=== PATIENT | male | born 1965 | race Caucasian/White ===

== ENCOUNTER → 2016-10-06 | Outpatient (CLI) | payer OTHER ==
--- NOTE | 2016-10-06 20:23 | REP ---
LEFT SHOULDER SERIES, COMPLETE: 10/06/2016. Comparison: 11/10/2008. Clinical history: Work injury to the shoulder. Findings: There are degenerative changes to the AC joint with inferior spurs there and also at the peripheral acromion. No widening of the joint space or elevation of the clavicle and no visible fracture around the AC joint. Humeral head, scapula and ribs without visible fracture or focal lesion. No subluxation or dislocation of the humeral head. No abnormal soft tissue calcifications. Impression: 1. 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 This might cause impingement. No fracture, subluxation or acute bony finding. Signed by Krishna Pat MD 10/07/2016 11:14 A
== END ==
LOC: M WUC 18:04
PROVIDERS: ATTEND Physician Assistant
DX: M25.512 Pain in left shoulder (principal); M19.012 Primary osteoarthritis, left shoulder

== ENCOUNTER 2018-04-13 06:40 | Day surgery (SDC) | payer OTHER ==
[~2018-04-13] VITALS: Ht 177.8 cm; Wt 180.9 kg
[~2018-04-13 06:40] MED LIST: ASPI81TA85 PO; FISH7.5C PO; IRBE300T10 PO; METO1TAB87 PO; NS 1,000 ML IV ONE; VITA10002 PO; VITA500T PO
[2018-04-13] MEDS ORDERED: PROPOFOL 200 MG/20 ML VIAL As Ordered ONE ×3 (07:52→08:21)
[2018-04-13] MEDS ORDERED: LIDOCAINE 2% INJ 100 MG/5 ML SDV (FOR ANES.) As Ordered ONE (07:52)
--- NOTE | 2018-04-13 08:40 | ROOR ---
Patient Name: Moo Lora Procedure Date: 04/13/2018 7:59 AM Date of : 1965 Age: 53 Room: [facility] Gender: Male Note Status: Finalized Procedure: Colonoscopy Indications: Screening for colorectal malignant neoplasm, Incidental - Hematochezia Providers: Benjamin LEBLANC MD Referring MD: VU IYER MD Requesting Provider: Medicines: Monitored Anesthesia Care Complications: No immediate complications. Procedure: Pre-Anesthesia Assessment: - The heart rate, respiratory rate, oxygen saturations, blood pressure, adequacy of pulmonary ventilation, and response to care were monitored throughout the procedure. The Colonoscope was introduced through the anus and advanced to the cecum, identified by appendiceal orifice and ileocecal valve. The colonoscopy was performed without difficulty. The patient tolerated the procedure well. The quality of the bowel preparation was good. Findings: The perianal and digital rectal examinations were normal. Small Internal Hemorrhoids. Mild sigmoid diverticulosis and small internal hemorrhoids. The entire examined colon appeared normal on direct and retroflexion views. Retroflexion in the right colon was performed. Impression: - Mild sigmoid diverticulosis and small internal hemorrhoids. - The entire colon is otherwise normal on direct and retroflexion views. - No specimens collected. Recommendation: - Repeat colonoscopy in 10 years for screening purposes. Benjamin Leblanc MD Benjamin LEBLANC MD 04/13/2018 8:39:41 AM This report has been signed electronically. Number of Addenda: 0 Note Initiated On: 04/13/2018 7:59 AM Estimated Blood Loss: Estimated blood loss: none.
[2018-04-13 08:58] VITALS: BP 124/71
== END 2018-04-13 09:10 | disposition home or self-care (01) ==
LOC: M OPP 06:40
PROVIDERS: ATTEND Internal Medicine Gastroenterology
DX: Z12.11 Encounter for screening for malignant neoplasm of colon (principal); K64.8 Other hemorrhoids; K57.30 Diverticulosis of large intestine without perforation or abscess without bleeding; I10 Essential (primary) hypertension; G47.30 Sleep apnea, unspecified; Z79.82 Long term (current) use of aspirin; Z79.899 Other long term (current) drug therapy

== ENCOUNTER → 2019-02-05 | Outpatient (REF) | payer OTHER ==
[~2019-02-05] MED LIST changes: +CYAN100049 PO; +D 101000 PO; +HYDR12CA PO; -NS 1,000 ML IV ONE; -VITA10002 PO
== END ==
LOC: M LAB REF 09:28
PROVIDERS: ATTEND Family Medicine
DX: E83.51 Hypocalcemia (principal)

== ENCOUNTER → 2020-02-11 | Outpatient (CLI) | payer OTHER ==
[~2020-02-11] MED LIST changes: -ASPI81TA85 PO; +ASPI81TA86 PO; -IRBE300T10 PO; +IRBE300T7 PO; +METHACHOLINE KIT (J7674) INH ONE; +VITA-243 PO; -VITA500T PO
--- NOTE | 2020-02-11 15:20 | PFTRPT ---
Height: 71.00 Inches Weight: 398.00 Lbs BSA: 2.83 Diagnosis: R06.02 DATE: 02/11/2020 METHACHOLINE CHALLENGE STUDY ORDERED BY: MAICOL DAVILA M.D. QUALITY: Study of excellent technical quality. PROCEDURE: Under protocol, methacholine was administered. At a dose of 10 mg or 63.75 CDUs, 23% decline in the FEV1 was noted. PC of 6.80 is significant. Flow rates did return to baseline post bronchodilator administration. IMPRESSION: Positive methacholine challenge study. MTDD
== END ==
LOC: M CARPUL 14:17
PROVIDERS: ATTEND Internal Medicine Pulmonary Disease
DX: R06.02 Shortness of breath (principal)
CPT/HCPCS: 94070; J7674

== ENCOUNTER → 2020-07-10 | Outpatient (CLI) | payer OTHER ==
[~2020-07-10] MED LIST changes: +LIDOCAINE 1% MDV 20ML VIAL As Ordered ONE; -METHACHOLINE KIT (J7674) INH ONE; +TRIAMCINOLONE ACETONIDE SUSP 40 MG/ML VIAL (J3301) As Ordered ONE
== END ==
LOC: M IRPRO 11:02
PROVIDERS: ATTEND Orthopaedic Surgery
DX: M75.21 Bicipital tendinitis, right shoulder (principal)
CPT/HCPCS: 20550; 76942; J3301

== ENCOUNTER → 2020-07-14 | Outpatient (CLI) | payer OTHER ==
--- NOTE | 2020-07-14 17:01 | REP ---
INDICATION: BICIPITAL TENDONITIS LEFT SHOULDER. COMPARISON: None. TECHNIQUE: The procedure was performed under the direct supervision of Dr. Weathers. The risks and benefits of the procedure were explained to the patient and informed consent was obtained. The left biceps tendon sheath was localized using ultrasound guidance. The skin was prepped and draped in a sterile fashion. 1% lidocaine was used as a local anesthetic. Using ultrasound guidance a 22 gauge needle was inserted and advanced into the tendon sheath. 3 cc of a solution containing 2 cc of 1% lidocaine and 1 cc of Kenalog 40 mg was injected. The needle was then removed. The patient tolerated the procedure well and there were no immediate complications. FINDINGS: None IMPRESSION: Ultrasound-guided left biceps tendon sheath injection. <Electronically signed by Benito Mckee > 07/14/20 [id number] <Electronically signed by Jan Weathers > 07/14/20 [id number]
== END ==
LOC: M IRPRO 10:43
PROVIDERS: ATTEND Orthopaedic Surgery
DX: M75.22 Bicipital tendinitis, left shoulder (principal)
CPT/HCPCS: 20550; 76942; J3301

== ENCOUNTER 2021-04-07 08:26 | Emergency (ER) | payer OTHER ==
[~2021-04-07] VITALS: Ht 177.8 cm; Wt 185.5 kg
[~2021-04-07 08:26] MED LIST changes: -LIDOCAINE 1% MDV 20ML VIAL As Ordered ONE; -TRIAMCINOLONE ACETONIDE SUSP 40 MG/ML VIAL (J3301) As Ordered ONE
[2021-04-07 10:54] VITALS: BP 170/88
== END 2021-04-07 11:07 | disposition home or self-care (01) ==
LOC: EDBD 08:26 → M ED 08:26
DX: S99.911A Unspecified injury of right ankle, initial encounter (principal); W00.0XXA Fall on same level due to ice and snow, initial encounter; Y92.89 Other specified places as the place of occurrence of the external cause; Y99.0 Civilian activity done for income or pay; I10 Essential (primary) hypertension; G47.33 Obstructive sleep apnea (adult) (pediatric); Z79.899 Other long term (current) drug therapy; Z79.82 Long term (current) use of aspirin

== ENCOUNTER 2025-02-17 07:54 | Emergency (ER) | payer OTHER ==
[~2025-02-17] VITALS: Ht 177.8 cm; Wt 178.2 kg
[~2025-02-17 07:54] MED LIST changes: +FISH1CAP38 PO; -FISH7.5C PO; +HYDR12.510 PO; -HYDR12CA PO; +IRBE300T25 PO; -IRBE300T7 PO
[2025-02-17 08:14] VITALS: TEMP 98.2
[2025-02-17 09:00] VITALS: BP 153/91; O2SAT 95
== END 2025-02-17 09:25 | disposition home or self-care (01) ==
LOC: M ED 07:54 → EDBD 07:54 → M ED 09:25
DX: S89.91XA Unspecified injury of right lower leg, initial encounter (principal); S60.512A Abrasion of left hand, initial encounter; S60.419A Abrasion of unspecified finger, initial encounter; W18.30XA Fall on same level, unspecified, initial encounter; Y92.410 Unspecified street and highway as the place of occurrence of the external cause; Y93.01 Activity, walking, marching and hiking; Y99.9 Unspecified external cause status; I10 Essential (primary) hypertension; G47.30 Sleep apnea, unspecified; Z79.82 Long term (current) use of aspirin; Z79.899 Other long term (current) drug therapy